=== PATIENT | female | born 1985 | race Caucasian/White ===

== ENCOUNTER 2018-11-13 12:24 | Emergency (ER) | payer MEDICAID ==
[~2018-11-13] VITALS: Ht 160 cm; Wt 102.3 kg
[2018-11-13 13:33] LABS: ALBUMIN 4.8 gm/dL (3.5-5.0); BILIRUBIN,TOTAL 0.5 mg/dL (0.0-1.0); C-REACTIVE PROTEIN 1.9 mg/dL (0.0-0.9); CALCIUM 9.8 mg/dL (8.4-10.2); CREATININE, serum 0.52 (0.52-1.25); POTASSIUM 4.1 mmol/L (3.4-5.0); TOTAL PROTEIN 8.5 gm/dL (6.4-8.2)
[2018-11-13] MEDS ORDERED: NORCOELIX PO (15:07)
[2018-11-13 15:25] LABS: RED BLOOD COUNT 4.57 M/mm3 (4.10-5.30)
[2018-11-13 15:26] LABS: BASO % 0.3 % (0.0-2.0); GRAN # 7.8 (1.4-6.5); GRAN % 70.8 % (42.2-75.2); HEMATOCRIT 40.8 % (37.0-47.0); HEMOGLOBIN 13.5 g/dl (12.5-16.0); LYMPH % 18.3 % (20.0-51.0); MEAN CELL VOLUME 89 fl (80.0-100.0); MEAN CORPUSCULAR HEMOGLOBIN 30 pg (27.0-31.0); MEAN CORPUSCULAR HGB CONC 33 g/dl (33.0-37.0); MEAN PLATELET VOLUME 10.7 fl (7.4-10.4); MONO % 9.5 % (1.7-9.3); PLATELET COUNT 285 K/mm3 (130-400); REDCELL DISTRIBUTION WIDTH-CV 12.3 % (11.5-14.5)
[2018-11-13 15:27] LABS: EOS # 0.1 (0.0-0.7)
[2018-11-13 16:38] VITALS: BP 138/92; PULSE 83; TEMP 98.7
== END 2018-11-13 16:44 | disposition home or self-care (01) ==
LOC: COL.ER 12:24
PROVIDERS: Physician Assistant
DX: K04.7 Periapical abscess without sinus (principal)
CPT/HCPCS: J1885; J2270; J2405; J7030; Q9967